=== PATIENT | male | born 1970 | race Two or more races ===

== ENCOUNTER → 2019-10-24 | Emergency (ER) | payer MEDICAID, OTHER ==
[~2019-10-24] VITALS: Ht 175.3 cm; Wt 90.7 kg
[~2019-10-24] MED LIST: cefTRIAXone 1GM/50ML D5W 50 ML IV ONE
[2019-10-24 11:16] LABS: Basophils # (auto) 0 10 ^3/uL (0-0.2); Eosinophils # (auto) 0.1 10 ^3/uL (0-0.8); Hemoglobin 11.3 g/dL (13.5-17.5); Lymphocytes # (auto) 1.7 10 ^3/uL (0.4-5.4); Neutrophils # (auto) 2.7 10 ^3/uL (1.6-8.6)
[2019-10-24 11:18] LABS: Basophils % (auto) 0.8 % (0.0-2.0); Eosinophils % (auto) 1.9 % (0.0-7.0); Hematocrit 36.6 % (41.0-53.0); Lymphocytes % (auto) 33.9 % (10.0-50.0); Mean Corpuscular Hemoglobin 22.9 pg (28.0-32.0); Mean Corpuscular Volume 74.1 fL (80.0-100.0); Monocytes # (auto) 0.4 10 ^3/uL (0-1.3); Monocytes % (auto) 8.7 % (0.0-12.0); Neutrophils % (auto) 54.7 % (37.0-80.0); Platelet Count (auto) 280 10^3/uL (140-450); Red Blood Cells 4.94 10^6/uL (4.5-5.90); White Blood Cell 4.9 10^3/uL (4.4-10.8)
[2019-10-24 11:20] LABS: Red Cell Distribution Width 22.1 % (11.8-14.3)
[2019-10-24 11:32] LABS: Albumin 3.3 g/dL (3.4-5.0); Calcium 8.1 mg/dL (8.5-10.1); Potassium 3.6 mmol/L (3.5-5.1)
[2019-10-24 11:36] LABS: BUN/Creatinine Ratio 25.4; Bilirubin, Total 0.4 mg/dL (0.2-1.0); Total Protein 8.5 g/dL (6.4-8.2)
[2019-10-24 15:12] VITALS: BP 109/67
== END | disposition home or self-care (01) ==
LOC: ER 10:29
DX: L03.312 Cellulitis of back [any part except buttock and flank] (principal); L81.8 Other specified disorders of pigmentation; F17.210 Nicotine dependence, cigarettes, uncomplicated
CPT/HCPCS: 36415; 80053; 83605; 85025; 87040; 87205; 96365; 99285; J0696; 87077; 87186